=== PATIENT | male | born 1980 | race Caucasian/White ===

== ENCOUNTER 2017-09-07 21:04 | Emergency (ER) | payer MEDICAID ==
[~2017-09-07] VITALS: Ht 180.3 cm; Wt 111.1 kg
[2017-09-07] MEDS ORDERED: ketorolac trometh inj. 60 MG/2 ML VIAL IM ONE (21:25)
[2017-09-07 21:45] LABS: CLARITY,URINE TURBID (Clear); COLOR,URINE YELLOW (Yellow); GLUCOSE, URINE 100 mg/dl (Neg); KETONES,URINE NEGATIVE (Neg); LEUKOCYTE ESTERASE ,URINE MODERATE (Neg); NITRITES, URINE NEGATIVE (Neg); OCCULT BLOOD,URINE MODERATE (Neg); PROTEIN,URINE 100 mg/dl (Neg)
[2017-09-07 21:57] LABS: UA COLLECTION TYPE CLN CATCH MIDSTREAM
[2017-09-07 21:58] LABS: BACTERIA,URINE 1+ /HPF (Neg); MUCUS STRANDS MANY /LPF (Neg); SQUAMOUS EPITHELIAL CELL,UR FEW /LPF (FEW); WBC,URINE TNTC /HPF (0-4)
[2017-09-07] MEDS ORDERED: CefTRIAXone 250MG IM Kit w/LIDOcaine IM ONE (22:10)
[2017-09-07] MEDS ORDERED: azithromycin 250mg tablet PO ONE (22:10)
[2017-09-07 22:48] VITALS: BP 120/72
== END 2017-09-07 22:49 | disposition home or self-care (01) ==
LOC: ER 21:05
DX: N45.1 Epididymitis (principal); N39.0 Urinary tract infection, site not specified
CPT/HCPCS: 76870; 81001; 87077; 87088; 87186; 96372; 99285; J0696; J1885